=== PATIENT | female | born 2000 | race African-American/Black ===

== ENCOUNTER 2021-02-07 09:51 | Emergency (ER) | payer MEDICAID ==
[~2021-02-07] VITALS: Ht 149.9 cm; Wt 48.0 kg
[2021-02-07] MEDS ORDERED: DEXTL PO (11:01)
[2021-02-07] MEDS ORDERED: ALBU18HF2 IH (11:01)
[2021-02-07 11:15] VITALS: BP 113/73
== END 2021-02-07 11:16 | disposition home or self-care (01) ==
LOC: ER 09:51
DX: J20.9 Acute bronchitis, unspecified (principal); Z79.899 Other long term (current) drug therapy
CPT/HCPCS: 71045; 99283

== ENCOUNTER 2022-03-18 15:14 | Emergency (ER) | payer MEDICAID ==
[~2022-03-18] VITALS: Ht 152.4 cm; Wt 50.0 kg
[~2022-03-18 15:14] MED LIST: ALBU18HF2 IH; DEXTL PO
[2022-03-18 15:17] VITALS: BP 85/58
[2022-03-18] MEDS ORDERED: GUAI-453 MT (17:22)
== END 2022-03-18 17:58 | disposition home or self-care (01) ==
LOC: ER 15:14
DX: J40 Bronchitis, not specified as acute or chronic (principal)
CPT/HCPCS: 71045; 81025; 99283

== ENCOUNTER 2023-05-22 11:43 | Emergency (ER) | payer MEDICAID ==
[~2023-05-22] VITALS: Ht 152.4 cm; Wt 56.0 kg
[~2023-05-22 11:43] MED LIST changes: +GUAI-453 MT
[2023-05-22 11:47] VITALS: BP 105/73; PULSE 100; RESP 18; TEMP 98.4; O2SAT 99
[2023-05-22] MEDS ORDERED: FLUT9.9S BOTHNSTRLS (14:16)
== END 2023-05-22 15:01 | disposition home or self-care (01) ==
LOC: ER 11:43
DX: R05.9 Cough, unspecified (principal)
CPT/HCPCS: 71046; 99283